=== PATIENT | female | born 1985 | race Two or more races ===

== ENCOUNTER 2022-12-10 09:38 | Emergency (ER) | payer OTHER ==
[~2022-12-10] VITALS: Ht 160 cm; Wt 72.1 kg
[2022-12-10] MEDS ORDERED: SYNTHROID150 MCG PO (10:06)
== END 2022-12-10 14:55 | disposition home or self-care (01) ==
LOC: ER 09:38
DX: K80.20 Calculus of gallbladder without cholecystitis without obstruction (principal); R10.11 Right upper quadrant pain; E03.8 Other specified hypothyroidism

== ENCOUNTER 2023-01-02 05:45 | Day surgery (SDC) | payer OTHER ==
[~2023-01-02] VITALS: Ht 154.9 cm; Wt 72.1 kg
[~2023-01-02 05:45] MED LIST: SYNTHROID150 MCG PO
[2023-01-02] MEDS ORDERED: SURFAK240 M1 PO (07:34)
[2023-01-02] MEDS ORDERED: PERCOCET 5-3251 EACH PO (07:34)
[2023-01-02] MEDS ORDERED: MIRALAX510 GM PO (07:34)
[2023-01-02] MEDS ORDERED: NEXIUM 24HR20 MG PO (07:35)
[2023-01-02] MEDS ORDERED: CIPRO500 MG PO (09:13)
[2023-01-02] MEDS ORDERED: AMOX1TAB5 PO (09:24)
== END 2023-01-02 11:20 | disposition home or self-care (01) ==
LOC: CIR.AMB 05:45
PROVIDERS: ATTEND Surgery
DX: K80.10 Calculus of gallbladder with chronic cholecystitis without obstruction (principal); Z20.822 Contact with and (suspected) exposure to COVID-19; I10 Essential (primary) hypertension; E03.9 Hypothyroidism, unspecified

== ENCOUNTER → 2023-07-06 | Emergency (ER) | payer OTHER ==
[~2023-07-06] VITALS: Ht 160 cm; Wt 72.6 kg
[~2023-07-06] MED LIST changes: +AMOX1TAB5 PO; +CIPRO500 MG PO; +MIRALAX510 GM PO; +NEXIUM 24HR20 MG PO; +PERCOCET 5-3251 EACH PO; +SURFAK240 M1 PO
[2023-07-06 22:00] LABS: HEMATOCRIT 34.6 % (36.0-45.00); MEAN CELL VOLUME 93.2 fL (80.00-100.00); MEAN CORPUSCULAR HEMOGLOBIN 32.4 pg (27.00-32.0); MEAN CORPUSCULAR HGB CONC 34.7 g/dl (32.0-36.0); PLATELET COUNT 370 K/uL (150-450); RED BLOOD COUNT 3.71 M/uL (4.00-6.00); RED CELL DISTRIBUTION WIDTH 11.8 % (11.5-14.5)
== END | disposition home or self-care (01) ==
LOC: ER 21:01
PROVIDERS: General Practice
DX: R53.81 Other malaise (principal); R05.9 Cough, unspecified; Z20.822 Contact with and (suspected) exposure to COVID-19; Z88.6 Allergy status to analgesic agent; Z91.048 Other nonmedicinal substance allergy status